=== PATIENT | female | born 1975 | race Caucasian/White ===

== ENCOUNTER 2022-02-09 09:17 | Emergency (ER) | payer OTHER ==
[~2022-02-09] VITALS: Ht 165.1 cm; Wt 88.0 kg
[2022-02-09] MEDS ORDERED: methylPREDNISolone SOD SUCC PF 40 MG/ML VIAL. IV ONE (10:00)
--- NOTE | 2022-02-09 10:06 | PHYS DOC ---
Past History Additional Past Medical Histor: Lupus, Past Surgical History: Cholecystectomy, Hysterectomy, Tonsillectomy General Adult EDM: Chief Complaint: SHORTNESS OF BREATH HPI: HPI: Patient is a 46-year-old female who arrives ambulatory to the emergency department complaining of difficulty breathing and chest tightness as well as pain with deep breathing. Patient was recently diagnosed with COVID-19 as she contracted it from her . Patient states that she is vaccinated despite hu the illness. Patient states for the past 3 days she has felt increasing work of breathing and today she feels as if she is struggling. Patient states that she does have chest pain which is more prevalent with deep breathing. She states despite her symptoms she has not had any fevers. She further denies any abdominal symptomology. She is awake, alert and nontoxic- appearing. Review of Systems: Review of Systems: Constitutional: Denies fever or chills Eyes: Denies change in visual acuity HENT: Denies nasal congestion or sore throat Respiratory: Reports shortness of air as well as a dry cough. Additionally reports pleuritic chest pain and pain with deep breathing. Cardiovascular: Denies chest pain or edema GI: Denies abdominal pain, nausea, vomiting, bloody stools or diarrhea : Denies dysuria Musculoskeletal: Denies back pain or joint pain Integument: Denies rash Neurologic: Denies headache, focal weakness or sensory changes Endocrine: Denies polyuria or polydipsia Lymphatic: Denies swollen glands Psychiatric: Denies depression or anxiety Current Medications: Current Meds: Current Medications Medications (Trade) Dose Ordered Sig/Yony Start Time Stop Time Status Last Admin Dose Admin Methylprednisolone Sodium Succinate (SOLU-Medrol 40MG VIAL) 11,000 mg 1X ONCE 02/09/22 10:00 02/09/22 10:01 UNV Methylprednisolone Sodium Succinate (SOLU-Medrol 125MG VIAL) 125 mg 1X ONCE 02/09/22 10:15 02/09/22 10:16 UNV Allergies: Allergies: Allergies Coded Allergies Type Severity Reaction Last Updated Verified meperidine Allergy Unknown 02/09/22 Yes Physical Exam: PE: Constitutional: Well developed, well nourished, no acute distress, non-toxic appearance. [] HENT: Normocephalic, atraumatic, bilateral external ears normal, oropharynx moist, no oral exudates, nose normal. [] Eyes: PERRLA, EOMI, conjunctiva normal, no discharge. [] Neck: Normal range of motion, no tenderness, supple, no stridor. [] Cardiovascular:Heart rate regular rhythm, no murmur [] Lungs & Thorax: Bilateral breath sounds clear to auscultation [] Abdomen: Bowel sounds normal, soft, no tenderness, no masses, no pulsatile masses. [] Skin: Warm, dry, no erythema, no rash. [] Back: No tenderness, no CVA tenderness. [] Extremities: No tenderness, no cyanosis, no clubbing, ROM intact, no edema. [] Neurologic: Alert and oriented X 3, normal motor function, normal sensory function, no focal deficits noted. [] Psychologic: Affect normal, judgement normal, mood normal. [] Current Patient Data: Vital Signs: Vital Signs Date Time Temp Pulse Resp B/P (MAP) Pulse Ox O2 Delivery O2 Flow Rate FiO2 02/09/22 09:34 98.4 93 20 145/81 (102) 96 Room Air EKG: EKG: EKG was obtained at 9:41 AM and revealed a normal sinus rhythm with a ventricular rate of 89 bpm. Intervals are normal and there are no acute ST/T wave changes to denote ischemia. This is a normal EKG. [] Radiology/Procedures: Radiology/Procedures: [][place] [address] IMAGING REPORT Signed PATIENT: GREG SUTHERLAND ACCOUNT: [id number] : 1975 LOCATION: ER AGE: 46 SEX: F EXAM STATUS: REG ER ORD. PHYSICIAN: YAMILA SANTANA DO REASON: Shortness of air PROCEDURE: PORTABLE CHEST 1V EXAM: Chest, single view. HISTORY: Shortness of air. COMPARISON: None. FINDINGS: A frontal view of the chest is obtained. There is no infiltrate, pleural effusion or pneumothorax. The heart is normal in size. IMPRESSION: No acute pulmonary finding. Electronically signed by: Linda Soni MD (02/09/2022 10:34 AM) [id number] DICTATED AND SIGNED BY: LINDA SONI MD DATE: 02/09/22 1033 CC: THERESE BARKLEY DO; YAMILA SANTANA DO ~ Heart Score: C/O Chest Pain: Yes HEART Score for Chest Pain: HEART Score for Chest Pain Response (Comments) Value History Slighlty/Non-Suspicious 0 ECG Normal 0 Age < 45 0 Risk Factors 1 or 2 Risk Factors 1 Troponin < Normal Limit 0 Total 1 Risk Factors: Risk Factors: DM, Current or recent (<one month) smoker, HTN, HLP, family history of CAD, obesity. Risk Scores: Score 0 - 3: 2.5% MACE over next 6 weeks - Discharge Home Score 4 - 6: 20.3% MACE over next 6 weeks - Admit for Clinical Observation Score 7 - 10: 72.7% MACE over next 6 weeks - Early Invasive Strategies Course & Med Decision Making: Course & Med Decision Making Pertinent Labs and Imaging studies reviewed. The patient was taken directly to room 9 in the emergency department where IV access was established. Imaging as well as blood work were obtained. After review of those entities, everything appears to be within normal limits. I do believe the patient's complaints are related to having COVID-19. Despite this, the patient is not hypoxic. The patient will be prescribed a rescue inhaler as well as a steroid taper. Moreover I advised the patient to return to the emergency department should she have any new chest pain or feel as if her shortness of air is worsening. The patient understands and has agreed to do so. She is otherwise been encouraged to adhere to quarantine protocols as a relates to being infected with the virus. She is nontoxic-appearing and stable for discharge. [] Dragon Disclaimer: Josette Disclaimer: This electronic medical record was generated, in whole or in part, using a voice recognition dictation system. Departure Departure: Impression: Primary Impression: Respiratory distress Additional Impression: History of COVID-19 Disposition: HOME / SELF CARE / HOMELESS Condition: STABLE Referrals: THERESE BARKLEY DO (PCP) Patient Instructions: Upper Respiratory Infection, Adult Scripts Albuterol Sulfate (PROAIR HFA INHALER) 8.5 Gm Hfa.aer.ad 2 PUFF IH PRN Q4-6HRS PRN for wheezing for 21 Days, #1 INHALER 0 Refills Prov: YAMILA SANTANA DO 02/09/22 Methylprednisolone (MEDROL) 4 Mg Tab.ds.pk 1 PKG PO UD for soa for 7 Days, #1 PKG Prov: YAMILA SANTANA DO 02/09/22 YAMILA SANTANA DO February 09, 2022 10:06
[2022-02-09] MEDS ORDERED: methylPREDNISolone SOD SUCC PF 125 MG/2 ML VIAL. IV ONE (10:15)
[2022-02-09 10:35] LABS: BASO % 0 % (0-3); EOS % 0 % (0-3); HEMATOCRIT 41.2 % (36.0-47.0); HEMOGLOBIN 14.1 g/dL (12.0-15.5); LYMPH # 1.7 x10^3/uL (1.0-4.8); LYMPH % 22 % (24-48); MEAN CORPUSCULAR HEMOGLOBIN 31 pg (25-35); MEAN CORPUSCULAR HGB CONC 34 g/dL (31-37); MEAN CORPUSCULAR VOLUME 89 fL (79-100); MONO % 13 % (0-9); NEUT # 4.9 x10^3uL (1.8-7.7); NEUT % 64 % (31-73); PLATELET COUNT 171 x10^3/uL (140-400); RED BLOOD COUNT 4.62 x10^6/uL (3.50-5.40); RED CELL DISTRIBUTION WIDTH 12.9 % (11.5-14.5); WHITE BLOOD COUNT 7.7 x10^3/uL (4.0-11.0)
--- NOTE | 2022-02-09 10:36 | RAD ---
EXAM: Chest, single view. HISTORY: Shortness of air. COMPARISON: None. FINDINGS: A frontal view of the chest is obtained. There is no infiltrate, pleural effusion or pneumo thorax. The heart is normal in size. IMPRESSION: No acute pulmonary finding. Electronically signed by: Linda Dave MD (02/09/2022 10:34 AM) [id number]
[2022-02-09 10:54] LABS: CALCIUM 8.7 mg/dL (8.5-10.1); CREATININE 0.6 mg/dL (0.6-1.0); GFR 108.6; POTASSIUM 3.8 mmol/L (3.5-5.1)
[2022-02-09 11:00] VITALS: BP 118/75
[2022-02-09 11:08] LABS: ALBUMIN 3.5 g/dL (3.4-5.0); ALBUMIN/GLOBULIN RATIO 1.4 (1.0-1.7); TOTAL BILIRUBIN 0.9 mg/dL (0.2-1.0)
[2022-02-09] MEDS ORDERED: ALBU2.5V8 IH (11:23)
[2022-02-09] MEDS ORDERED: METH4TAB2 PO (11:23)
--- NOTE | 2022-02-09 22:04 | EKG ---
[address] [address] Test Date: 2022-02-09 Test Time: 09:41:28 Pat Name: GREG SUTHERLAND Department: Room: Gender: F Assessment Director: LUKE : 1975 Requested By: YAMILA SANTANA Order Number: [id number] Reading MD: Red Carr Measurements Intervals [place] Rate: 89 P: 27 MI: 146 QRS: 12 QRSD: 80 T: 3 QT: 384 QTc: 468 Interpretive Statements SINUS RHYTHM NORMAL ECG RI6.02 No previous ECG available for comparison Electronically Signed On 02-10-2022 14:47:56 CDT by Red Carr
== END 2022-02-09 11:38 | disposition home or self-care (01) ==
LOC: ER 09:17
DX: R06.03 Acute respiratory distress (principal); R07.81 Pleurodynia; Z86.16 Personal history of COVID-19; Z88.8 Allergy status to other drugs, medicaments and biological substances
CPT/HCPCS: 36415; 71045; 80053; 83880; 84484; 85025; 93005; 96374; 99285; J2930